=== PATIENT | male | born 1955 | race Caucasian/White ===

== ENCOUNTER 2018-04-28 21:46 | Day surgery (SDC) | payer BC ==
[2018-04-28] MEDS ORDERED: LORazepam 2 MG/ML SDV IVPUSH ONE (22:02)
[2018-04-28] MEDS ORDERED: Sodium Chloride 0.9% 10 ML Syringe FLUSH PRN ×2 (22:02→22:46)
[2018-04-28] MEDS ORDERED: Glucagon,Human Recombinant 1 MG Vial IVPUSH ONE (22:02)
[2018-04-28] MEDS ORDERED: Lactated Ringers 1,000 ML IV SCH (22:15)
--- NOTE | 2018-04-28 22:36 | EDM.PDOC ---
ED HPI GENERAL MEDICAL PROBLEM - General Chief Complaint: ENT Problem Stated Complaint: FOOD STUCK IN THROAT Time Seen by Provider: 04/28/18 21:56 Source of Information: Reports: Patient History Limitations: Reports: No Limitations - History of Present Illness INITIAL COMMENTS - FREE TEXT/NARRATIVE: The patient presents with chicken stuck in his throat. He was eating about 3 hours ago when this started. He cannot drink or eat anything. He says he has had trouble with some foods in the past but he is able to get them moving after a short time. He cannot move this one. He had surgery on a hernia recently. Onset: Sudden Duration: Hour(s): (3) Location: Reports: Neck (throat) Quality: Reports: Sharp Severity: Moderate Improves with: Reports: Other (not eating or drinking) Worsens with: Reports: Other (eating or drinking) Context: Reports: Activity (eating chicken) Associated Symptoms: Reports: No Other Symptoms - Related Data Allergies Allergy/AdvReac Type Severity Reaction Status Date / Time venom-honey bee Allergy Shortness Verified 04/28/18 21:54 [bee venom (honey bee)] of Breath Home Meds: Home Meds Ibuprofen [Motrin] 400 mg PO BID PRN 05/30/14 [History] Past Medical History - Past Surgical History GI Surgical History: Reports: Hernia Repair/Other Social & Family History - Tobacco Use Smoking Status *Q: Former Smoker Used Tobacco, but Quit: Yes Month/Year Tobacco Last Used: 15 years - Caffeine Use Caffeine Use: Reports: Coffee - Recreational Drug Use Recreational Drug Use: No ED ROS ENT - Review of Systems Review Of Systems: See Below Constitutional: Reports: No Symptoms HEENT: Reports: Other (chicken stuck in his throat) Respiratory: Reports: No Symptoms Cardiovascular: Reports: No Symptoms Endocrine: Reports: No Symptoms GI/Abdominal: Reports: No Symptoms : Reports: No Symptoms Musculoskeletal: Reports: No Symptoms ED EXAM, ENT - Physical Exam Exam: See Below Exam Limited By: No Limitations General Appearance: Alert, No Apparent Distress Ears: Normal External Exam Nose: Normal Inspection Mouth/Throat: Normal Inspection Head: Atraumatic, Normocephalic Neck: Normal Inspection, Supple, Non-Tender Respiratory/Chest: No Respiratory Distress, Lungs Clear, Normal Breath Sounds Cardiovascular: Regular Rate, Rhythm, No Edema, No Murmur GI/Abdominal: Soft, Non-Tender, No Organomegaly, No Mass Extremities: Normal Inspection Course - Vital Signs Last Recorded V/S: Last Vital Signs Temp 98 F 04/28/18 21:52 Pulse 87 04/28/18 21:52 Resp 16 04/28/18 21:52 BP 147/103 H 04/28/18 21:52 Pulse Ox 92 L 04/28/18 21:52 - Orders/Labs/Meds Orders: Active Orders 24 hr Category Date Time Status Peripheral IV Care [RC] . DIRECTED Care 04/28/18 22:02 Active Lactated Ringers [Ringers, Lactated] 1,000 ml Med 04/28/18 22:15 Active IV ASDIRECTED Sodium Chloride 0.9% [Saline Flush] Med 04/28/18 22:02 Active 10 ml FLUSH ASDIRECTED PRN Peripheral IV Insertion Adult [OM.PC] Routine Oth 04/28/18 22:02 Ordered Medication Orders Lactated Ringer's (Ringers, Lactated) 1,000 mls @ 150 mls/hr IV ASDIRECTED ERIC Last Admin: 04/28/18 22:20 Dose: 150 mls/hr Sodium Chloride (Saline Flush) 10 ml FLUSH ASDIRECTED PRN PRN Reason: Keep Vein Open Last Admin: 04/28/18 22:17 Dose: 10 ml Meds: Medications Generic Name Dose Route Start Last Admin Trade Name Freq PRN Reason Stop Dose Admin Lactated Ringer's 1,000 mls @ 150 mls/hr 04/28/18 22:15 04/28/18 22:20 Ringers, Lactated IV 150 mls/hr ASDIRECTED ERIC Administration Sodium Chloride 10 ml 04/28/18 22:02 04/28/18 22:17 Saline Flush FLUSH 10 ml ASDIRECTED PRN Administration Keep Vein Open Discontinued Medications Generic Name Dose Route Start Last Admin Trade Name Freq PRN Reason Stop Dose Admin Glucagon 1 mg 04/28/18 22:02 04/28/18 22:20 Glucagen IVPUSH 04/28/18 22:03 1 mg ONETIME ONE Administration Lorazepam 1 mg 04/28/18 22:02 04/28/18 22:19 Ativan IVPUSH 04/28/18 22:03 1 mg ONETIME ONE Administration - Re-Assessments/Exams Free Text/Narrative Re-Assessment/Exam: 04/28/18 22:40 I ordered an IV LR at 150mL/hr, glucagon 1mg IV, and ativan 1mg IV. That did not help. I called Dr Hunt and he will come see the patient and take him to the OR. Departure - Departure Time of Disposition: 22:45 Disposition: DC/Tfer to [facility] Condition: Good Clinical Impression: Esophageal foreign body Qualifiers: Encounter type: initial encounter Qualified Code(s): T18.108A - Unspecified foreign body in esophagus causing other injury, initial encounter - Discharge Information Referrals: PCP,None [Primary Care Provider] - - My Orders Last 24 Hours: My Active Orders 04/28/18 22:02 Peripheral IV Care [RC] . DIRECTED Sodium Chloride 0.9% [Saline Flush] 10 ml FLUSH ASDIRECTED PRN Peripheral IV Insertion Adult [OM.PC] Routine 04/28/18 22:15 Lactated Ringers [Ringers, Lactated] 1,000 ml IV ASDIRECTED - Assessment/Plan Last 24 Hours: My Active Orders 04/28/18 22:02 Peripheral IV Care [RC] . DIRECTED Sodium Chloride 0.9% [Saline Flush] 10 ml FLUSH ASDIRECTED PRN Peripheral IV Insertion Adult [OM.PC] Routine 04/28/18 22:15 Lactated Ringers [Ringers, Lactated] 1,000 ml IV ASDIRECTED
--- NOTE | 2018-04-28 22:53 | PCM.HP ---
H&P History of Present Illness - General Date of Service: 04/28/18 Admit Problem/Dx: Admission Diagnosis/Problem Admission Diagnosis/Problem Foreign body in esophagus Source of Information: Patient, Family, Provider - History of Present Illness Initial Comments - Free Text/Narative: 63-year-old male who works at [employer] here in town ate chicken about 3-4 hours ago. The piece became lodged in his esophagus causing local discomfort and inability to tolerate his salivary secretions. He tried water without success. He stated that when he drank water it went the wrong way. He presented to the emergency room and all medical efforts were attempted to allow for passage of the meat but were unsuccessful. I was asked to see him for endoscopic disimpaction. - Related Data Allergies/Adverse Reactions: Allergies Allergy/AdvReac Type Severity Reaction Status Date / Time venom-honey bee Allergy Shortness Verified 04/28/18 21:54 [bee venom (honey bee)] of Breath Home Medications: Home Meds Ibuprofen [Motrin] 400 mg PO BID PRN 05/30/14 [History] Past Medical History - Past Surgical History GI Surgical History: Reports: Hernia Repair/Other Social & Family History - Tobacco Use Smoking Status *Q: Former Smoker Used Tobacco, but Quit: Yes Month/Year Tobacco Last Used: 15 years - Caffeine Use Caffeine Use: Reports: Coffee - Recreational Drug Use Recreational Drug Use: No H&P Review of Systems - Review of Systems: Review Of Systems: ROS reveals no pertinent complaints other than HPI. Exam - Exam Exam: See Below - Vital Signs Vital Signs: Last Vital Signs Temp 36.6 C 04/28/18 21:52 Pulse 87 04/28/18 21:52 Resp 16 04/28/18 21:52 BP 147/103 H 04/28/18 21:52 Pulse Ox 92 L 04/28/18 21:52 Weight: 83.915 kg - Exam General: Alert, Oriented, Cooperative, Mild Distress HEENT: Conjunctiva Clear, EOMI, Hearing Intact Neck: Supple Lungs: Clear to Auscultation, Normal Respiratory Effort Cardiovascular: Regular Rate, Regular Rhythm, Normal S1, Normal S2 GI/Abdominal Exam: Soft, Non-Tender (Male) Exam: Deferred Rectal (Males) Exam: Deferred Extremities: Normal Inspection, Normal Range of Motion Skin: Warm, Dry, Intact Psychiatric: Alert, Normal Affect - Problem List (1) Esophageal obstruction due to food impaction SNOMED Code(s): 706606372 ICD Code: K22.2 - ESOPHAGEAL OBSTRUCTION; T18.128A - FOOD IN ESOPHAGUS CAUSING OTHER INJURY, INITIAL ENCOUNTER Status: Acute Priority: High Current Visit: Yes Problem List Initiated/Reviewed/Updated: Yes Orders Last 24hrs: Active Orders 24 hr Category Date Time Status Admission Status [Patient Status] [ADT] Routine ADT 04/28/18 22:44 Active Communication Order [RC] ROUTINE Care 04/28/18 22:46 Ordered Patient to Empty Bladder [RC] ASDIRECTED Care 04/28/18 22:46 Ordered Peripheral IV Care [RC] . DIRECTED Care 04/28/18 22:02 Active Peripheral IV Care [RC] . DIRECTED Care 04/28/18 22:48 Ordered Verify Patient Consent Obtain [RC] ASDIRECTED Care 04/28/18 22:47 Ordered Nothing Per Oral Diet [DIET] Diet 04/28/18 Dinner Ordered Lactated Ringers [Ringers, Lactated] 1,000 ml Med 04/28/18 22:15 Active IV ASDIRECTED Sodium Chloride 0.9% @ 125 MLS/HR (1000ml) Med 04/28/18 23:00 Ordered Sodium Chloride 0.9% [Normal Saline] 1,000 ml IV ASDIRECTED Sodium Chloride 0.9% [Saline Flush] Med 04/28/18 22:02 Active 10 ml FLUSH ASDIRECTED PRN Sodium Chloride 0.9% [Saline Flush] Med 04/28/18 22:46 Ordered 10 ml FLUSH ASDIRECTED PRN Peripheral IV Insertion Adult [OM.PC] Routine Oth 04/28/18 22:02 Ordered Peripheral IV Insertion Adult [OM.PC] Routine Oth 04/28/18 22:46 Ordered Schedule Procedure [COMM] Routine Oth 04/28/18 22:46 Ordered Resuscitation Status Routine Resus Stat 04/28/18 22:46 Ordered Medication Orders Lactated Ringer's (Ringers, Lactated) 1,000 mls @ 150 mls/hr IV ASDIRECTED ERIC Last Admin: 04/28/18 22:20 Dose: 150 mls/hr Sodium Chloride (Normal Saline) 1,000 mls @ 125 mls/hr IV ASDIRECTED ERIC Sodium Chloride (Saline Flush) 10 ml FLUSH ASDIRECTED PRN PRN Reason: Keep Vein Open Last Admin: 04/28/18 22:17 Dose: 10 ml Sodium Chloride (Saline Flush) 10 ml FLUSH ASDIRECTED PRN PRN Reason: Keep Vein Open Assessment/Plan Comment:: Esophageal meat impaction will need endoscopic disimpaction. EGD with endoscopic meat disimpaction of the esophagus. The benefits and risk of the procedure as well as the alternatives were explained to the patient and his was in attendance. He is a patient of mine who I recently performed a hernia repair on and he wants me to proceed.
[2018-04-28] MEDS ORDERED: Lidocaine 1% 4 ML ONE (22:56)
[2018-04-28] MEDS ORDERED: Ondansetron 4 MG/2 ML SDV ONE (22:56)
[2018-04-28] MEDS ORDERED: Propofol 200 MG/20 ML SDV ONE (22:56)
[2018-04-28] MEDS ORDERED: Succinylcholine/Normal Saline 100 MG/5 ML Syringe ONE (22:56)
[2018-04-28] MEDS ORDERED: Lactated Ringers 1,000 ML ONE (22:56)
[2018-04-28] MEDS ORDERED: Dexamethasone 4 MG/ML SDV ONE (22:56)
[2018-04-28] MEDS ORDERED: Midazolam 1 MG/ML 2 ML SDV ONE (22:57)
[2018-04-28] MEDS ORDERED: fentaNYL 100 MCG/2 ML SDV ONE (22:57)
[2018-04-28] MEDS ORDERED: Sodium Chloride 0.9% 1,000 ML IV SCH (23:00)
--- NOTE | 2018-04-28 23:09 | PCM.PREANE ---
Preanesthetic Assessment - Anesthesia/Transfusion/Family Hx Anesthesia History: Prior Anesthesia Without Reaction Family History of Anesthesia Reaction: No Transfusion History: No Prior Transfusion(s) Intubation History: Unknown - Review of Systems General: No Symptoms Pulmonary: No Symptoms (Former smoker: quit 12 years ago.) Cardiovascular: No Symptoms Gastrointestinal: No Symptoms (GERD), Difficulty Swallowing (chicken stuck in throat) Neurological: Headache (migraines) Other: Reports: None, Throat Pain - Physical Assessment NPO Status Date: 04/28/18 NPO Status Time: 19:00 Pulse: 87 O2 Sat by Pulse Oximetry: 92 Respiratory Rate: 16 Blood Pressure: 147/103 Temperature: 36.6 C Vital Signs: Last Vital Signs Temp 36.6 C 04/28/18 21:52 Pulse 87 04/28/18 21:52 Resp 16 04/28/18 21:52 BP 147/103 H 04/28/18 21:52 Pulse Ox 92 L 04/28/18 21:52 Height: 1.75 m Weight: 83.915 kg ASA Class: 2E Mental Status: Alert & Oriented x3 Airway Class: Mallampati = 2 Dentition: Reports: Broken Tooth/Teeth, Missing Tooth/Teeth Thyro-Mental Finger Breadths: 3 Mouth Opening Finger Breadths: 3 ROM/Head Extension: Full Lungs: Clear to Auscultation, Normal Respiratory Effort Cardiovascular: Regular Rate, Regular Rhythm, No Murmurs - Allergies Allergies/Adverse Reactions: Allergies Allergy/AdvReac Type Severity Reaction Status Date / Time venom-honey bee Allergy Shortness Verified 04/28/18 21:54 [bee venom (honey bee)] of Breath - Anesthesia Plan Pre-Op Medication Ordered: None - Acknowledgements Anesthesia Type Planned: General Anesthesia Pt an Appropriate Candidate for the Planned Anesthesia: Yes Alternatives and Risks of Anesthesia Discussed w Pt/Guardian: Yes Pt/Guardian Understands and Agrees with Anesthesia Plan: Yes PreAnesthesia Questionnaire - Past Surgical History GI Surgical History: Reports: Hernia Repair/Other - SUBSTANCE USE Smoking Status *Q: Former Smoker Recreational Drug Use History: No - HOME MEDS Home Medications: Home Meds Ibuprofen [Motrin] 400 mg PO BID PRN 05/30/14 [History] - CURRENT (IN HOUSE) MEDS Current Meds: Current Medications Sodium Chloride (Normal Saline) 1,000 mls @ 125 mls/hr IV ASDIRECTED ERIC Sodium Chloride (Saline Flush) 10 ml FLUSH ASDIRECTED PRN PRN Reason: Keep Vein Open Last Admin: 04/28/18 22:17 Dose: 10 ml Sodium Chloride (Saline Flush) 10 ml FLUSH ASDIRECTED PRN PRN Reason: Keep Vein Open Last Admin: 04/28/18 22:51 Dose: 10 ml Discontinued Medications Dexamethasone (Dexamethasone) Confirm Administered Dose 8 mg .ROUTE .STK-MED ONE Stop: 04/28/18 22:57 Fentanyl (Sublimaze) Confirm Administered Dose 100 mcg .ROUTE .STK-MED ONE Stop: 04/28/18 22:58 Glucagon (Glucagen) 1 mg IVPUSH ONETIME ONE Stop: 04/28/18 22:03 Last Admin: 04/28/18 22:20 Dose: 1 mg Lactated Ringer's (Ringers, Lactated) 1,000 mls @ 150 mls/hr IV ASDIRECTED [facility] Last Admin: 04/28/18 22:20 Dose: 150 mls/hr Lidocaine HCl (Xylocaine-Mpf 1%) Confirm Administered Dose 4 mls @ as directed .ROUTE .STK-MED ONE Stop: 04/28/18 22:57 Lactated Ringer's (Ringers, Lactated) Confirm Administered Dose 1,000 mls @ as directed .ROUTE .STK-MED ONE Stop: 04/28/18 22:57 Lorazepam (Ativan) 1 mg IVPUSH ONETIME ONE Stop: 04/28/18 22:03 Last Admin: 04/28/18 22:19 Dose: 1 mg Midazolam HCl (Versed 1 Mg/Ml) Confirm Administered Dose 2 mg .ROUTE .STK-MED ONE Stop: 04/28/18 22:58 Ondansetron HCl (Zofran) Confirm Administered Dose 4 mg .ROUTE .STK-MED ONE Stop: 04/28/18 22:57 Propofol (Diprivan 20 Ml) Confirm Administered Dose 200 mg .ROUTE .STK-MED ONE Stop: 04/28/18 22:57 Succinylcholine Chloride (Succinylcholine In Ns Pf) Confirm Administered Dose 100 mg .ROUTE .STK-MED ONE Stop: 04/28/18 22:57
--- NOTE | 2018-04-29 00:05 | PCM.OPNOTE ---
- General Post-Op/Procedure Note Date of Surgery/Procedure: 04/29/18 Operative Procedure(s): Esophagogastroduodenoscopy with esophageal meat disimpaction with forceps biopsy at 25 cm Findings: Impacted chicken at 25-30 cm. There were no mass lesions, scarring stenoses evidence of acute or chronic esophagitis, strictures, webs, or rings. Pre Op Diagnosis: Esophageal meat impaction Post-Op Diagnosis: Same Anesthesia Technique: General ET Tube Primary Surgeon: Jose De Jesus Hunt EBL in mLs: 0 Complications: None Condition: Good Free Text/Narrative:: After adequate general endotracheal tube anesthesia was obtained a lubricated upper endoscope was inserted through a bite-block into the esophagus without difficulty. At about 20 cm there was a collection of saliva above impacted chicken at 25 cm. With gentle manipulation of the tip of the scope I was able to easily pass the meat into the stomach. At the area of the impaction there was some minor mucosal edema but no digestive changes and no other pathology seen in these areas. The GE junction was unremarkable. I passed the scope into the stomach and then through the pylorus into the second part of the duodenum. The second first ports were endoscopically normal. The antrum was endoscopically normal as well. In the retroflexed view I could see the meat that was impacted in the esophagus floating in the stomach. There was no hiatal hernia. The fundus and cardiac regions were grossly normal. I then withdrew the scope to the GE junction which was unremarkable. The body of the esophagus was normal except for the area where the meat was impacted. I then withdrew the scope after removing air. [employer] photographs were taken for the patient and for the medical record.
--- NOTE | 2018-04-29 00:13 | PCM.POSTAN ---
POST ANESTHESIA ASSESSMENT - MENTAL STATUS Mental Status: Alert - VITAL SIGNS Pulse Rate: 69 SaO2: 94 Resp Rate: 17 Blood Pressure: 119/79 Temperature: 37.1 C - RESPIRATORY Respiratory Status: Respiratory Rate WNL, Airway Patent, O2 Saturation Stable, Supplemental Oxygen - CARDIOVASCULAR CV Status: Pulse Rate WNL, Blood Pressure Stable - GASTROINTESTINAL GI Status: No Symptoms - POST OP HYDRATION Hydration Status: Adequate & Stable
--- NOTE | 2018-04-29 00:44 | PCM48HPAN ---
Post Anesthesia Note - EVALUATION WITHIN 48HRS OF ANESTHETIC Vital Signs in Normal Range: Yes Patient Participated in Evaluation: Yes Respiratory Function Stable: Yes Airway Patent: Yes Cardiovascular Function Stable: Yes Hydration Status Stable: Yes Pain Control Satisfactory: Yes Nausea and Vomiting Control Satisfactory: Yes Mental Status Recovered: Yes
== END 2018-04-29 01:15 | disposition home or self-care (01) ==
LOC: JD.ED 21:46 → JD.SDS 22:47
PROVIDERS: ATTEND Surgery
DX: T18.128A Food in esophagus causing other injury, initial encounter (principal); K20.9 Esophagitis, unspecified; D72.1 Eosinophilia; Z91.030 Bee allergy status; Z87.891 Personal history of nicotine dependence; X58.XXXA Exposure to other specified factors, initial encounter
CPT/HCPCS: 43239; 43247; 96361; 96374; 96375; 99285; J0330; J1100; J1610; J2001; J2060; J2405; J3010; J7050; J7120; 99284; J2250; J2704

== ENCOUNTER 2020-09-29 09:24 | Day surgery (SDC) | payer BC, MEDICARE ==
[2020-09-29] MEDS: Polymyxin B/Trimethoprim 10 ML Bottle EYELF SCH ×4 (09:30→10:46)
[2020-09-29] MEDS: Brimonidine 0.2% Ophth Soln 5 ML Bottle EYELF SCH ×3 (09:32→10:46)
[2020-09-29] MEDS: Phenylephrine 2.5% Ophth Soln 2 ML Bot EYELF SCH ×6 (09:34→10:25)
[2020-09-29] MEDS: Tropicamide 1% Ophth Soln 15 ML Bottle EYELF SCH ×4 (09:39→10:05)
--- NOTE | 2020-09-29 09:39 | PCM.PREANE ---
Preanesthetic Assessment - Anesthesia/Transfusion/Family Hx Anesthesia History: Prior Anesthesia Without Reaction Family History of Anesthesia Reaction: No Transfusion History: No Prior Transfusion(s) Intubation History: Unknown - Review of Systems General: No Symptoms Pulmonary: No Symptoms Cardiovascular: No Symptoms Gastrointestinal: No Symptoms Neurological: No Symptoms Other: Reports: None - Physical Assessment NPO Status Date: 09/28/20 NPO Status Time: 22:00 Vital Signs: Last Vital Signs Temp 36.8 C 09/29/20 09:20 Pulse 64 09/29/20 09:20 Resp 16 09/29/20 09:20 BP 155/95 H 09/29/20 09:20 Pulse Ox 95 09/29/20 09:20 Height: 1.78 m Weight: 72.575 kg ASA Class: 1 Mental Status: Alert & Oriented x3 Airway Class: Mallampati = 2 Dentition: Reports: Normal Dentition Thyro-Mental Finger Breadths: 3 Mouth Opening Finger Breadths: 3 ROM/Head Extension: Full Lungs: Clear to Auscultation, Normal Respiratory Effort - Allergies Allergies/Adverse Reactions: Allergies Allergy/AdvReac Type Severity Reaction Status Date / Time venom-honey bee Allergy Shortness Verified 09/28/20 12:33 [bee venom (honey bee)] of Breath - Blood Blood Available: No Product(s) Available: None - Anesthesia Plan Pre-Op Medication Ordered: None - Acknowledgements Anesthesia Type Planned: MAC Pt an Appropriate Candidate for the Planned Anesthesia: Yes Alternatives and Risks of Anesthesia Discussed w Pt/Guardian: Yes Pt/Guardian Understands and Agrees with Anesthesia Plan: Yes PreAnesthesia Questionnaire - Past Surgical History GI Surgical History: Reports: Hernia Repair/Other - HOME MEDS Home Medications: Home Meds . [No Known Home Meds] 09/28/20 [History] - CURRENT (IN HOUSE) MEDS Current Meds: Current Medications Brimonidine Tartrate (Alphagan 0.2% Ophth Soln) 0 ml EYELF ASDIRECTED ERIC Stop: 09/29/20 18:00 Last Admin: 09/29/20 09:32 Dose: 1 drop Documented by: Cefuroxime Sodium (Zinacef) 0 mg EYELF ASDIRECTED ERIC Stop: 09/29/20 18:00 Lidocaine HCl (Xylocaine-Mpf 1%) 0 ml INJECT ASDIRECTED ERIC Stop: 09/29/20 18:00 Phenylephrine HCl (Kashif-Synephrine 2.5% Ophth Soln) 0 ml EYELF ASDIRECTED ERIC Stop: 09/29/20 18:00 Last Admin: 09/29/20 09:34 Dose: 1 drop Documented by: Pilocarpine HCl (Pilocar 4% Ophth Soln) 0 ml EYELF ASDIRECTED ERIC Stop: 09/29/20 18:00 Polymyxin/Trimethoprim Sulfate (Polytrim Ophth Soln) 0 ml EYELF ASDIRECTED ERIC Stop: 09/29/20 18:00 Last Admin: 09/29/20 09:30 Dose: 1 drop Documented by: Tetracaine HCl (Tetracaine 0.5% Steri-Unit Mariajose) 0 ml EYEBOTH ASDIRECTED ERIC Stop: 09/29/20 18:00 Tropicamide (Mydriacyl 1% Ophth Soln) 0 ml EYELF ASDIRECTED ERIC Stop: 09/29/20 18:00
[2020-09-29] MEDS: Cefuroxime 10 MG/ML SYRINGE EYELF SCH ×2 (09:59→10:45)
[2020-09-29] MEDS: Tetracaine HCl/PF 0.5% 4 ML Bottle EYEBOTH SCH ×5 (09:59→10:34)
[2020-09-29] MEDS: Lidocaine 1% PF 2 ML SDV INJECT SCH ×2 (09:59→10:33)
[2020-09-29] MEDS: Pilocarpine 4% Ophth Soln 15 ML Bot EYELF SCH ×2 (10:01→10:46)
--- NOTE | 2020-09-29 10:47 | PCM48HPAN ---
Post Anesthesia Note - EVALUATION WITHIN 48HRS OF ANESTHETIC Vital Signs in Normal Range: Yes Patient Participated in Evaluation: Yes Respiratory Function Stable: Yes Airway Patent: Yes Cardiovascular Function Stable: Yes Hydration Status Stable: Yes Pain Control Satisfactory: Yes Nausea and Vomiting Control Satisfactory: Yes Mental Status Recovered: Yes Vital Signs: Last Vital Signs Temp 36.8 C 09/29/20 09:20 Pulse 64 09/29/20 09:20 Resp 16 09/29/20 09:20 BP 155/95 H 09/29/20 09:20 Pulse Ox 95 09/29/20 09:20
== END 2020-09-29 11:04 | disposition home or self-care (01) ==
LOC: JD.SDS 09:24
PROVIDERS: ATTEND Ophthalmology
DX: H25.813 Combined forms of age-related cataract, bilateral (principal); H18.513 Endothelial corneal dystrophy, bilateral; H16.223 Keratoconjunctivitis sicca, not specified as Sjogren's, bilateral; H02.831 Dermatochalasis of right upper eyelid; H50.52 Exophoria; H16.103 Unspecified superficial keratitis, bilateral; H02.834 Dermatochalasis of left upper eyelid; Z98.890 Other specified postprocedural states
CPT/HCPCS: 66984; C1780; J0697; J2001

== ENCOUNTER 2020-11-10 07:28 | Day surgery (SDC) | payer MEDICARE ==
[~2020-11-10 07:28] MED LIST: Cefuroxime 10 MG/ML SYRINGE EYERT SCH; Lidocaine 1% PF 2 ML SDV INJECT SCH; Pilocarpine 4% Ophth Soln 15 ML Bot EYERT SCH
[2020-11-10] MEDS: Polymyxin B/Trimethoprim 10 ML Bottle EYERT SCH ×3 (07:39→09:52)
[2020-11-10] MEDS: Brimonidine 0.2% Ophth Soln 5 ML Bottle EYERT SCH ×5 (07:44→10:29)
[2020-11-10] MEDS: Phenylephrine 2.5% Ophth Soln 15 ML Bot EYERT SCH ×6 (07:49→09:30)
[2020-11-10] MEDS: Tropicamide 1% Ophth Soln 15 ML Bottle EYERT SCH ×5 (07:54→08:50)
--- NOTE | 2020-11-10 08:00 | PCM.PREANE ---
Preanesthetic Assessment - Anesthesia/Transfusion/Family Hx Anesthesia History: Prior Anesthesia Without Reaction Family History of Anesthesia Reaction: No Transfusion History: No Prior Transfusion(s) Intubation History: Unknown - Review of Systems General: No Symptoms Pulmonary: No Symptoms Cardiovascular: No Symptoms Gastrointestinal: No Symptoms Neurological: No Symptoms Other: Reports: None - Physical Assessment NPO Status Date: 11/09/20 NPO Status Time: 22:00 Height: 1.75 m Weight: 77.111 kg ASA Class: 1 Mental Status: Alert & Oriented x3 Airway Class: Mallampati = 2 Dentition: Reports: Broken Tooth/Teeth, Missing Tooth/Teeth Thyro-Mental Finger Breadths: 3 Mouth Opening Finger Breadths: 3 ROM/Head Extension: Full Lungs: Clear to Auscultation, Normal Respiratory Effort Cardiovascular: Regular Rate, Regular Rhythm - Allergies Allergies/Adverse Reactions: Allergies Allergy/AdvReac Type Severity Reaction Status Date / Time venom-honey bee Allergy Shortness Verified 11/09/20 13:40 [bee venom (honey bee)] of Breath - Acknowledgements Anesthesia Type Planned: MAC Pt an Appropriate Candidate for the Planned Anesthesia: Yes Alternatives and Risks of Anesthesia Discussed w Pt/Guardian: Yes Pt/Guardian Understands and Agrees with Anesthesia Plan: Yes PreAnesthesia Questionnaire HEENT History: Reports: Cataract Cardiovascular History: Reports: None Respiratory History: Reports: None Gastrointestinal History: Reports: None Genitourinary History: Reports: None Musculoskeletal History: Reports: None Neurological History: Reports: None Psychiatric History: Reports: None Endocrine/Metabolic History: Reports: None - Past Surgical History HEENT Surgical History: Reports: Cataract Surgery GI Surgical History: Reports: Hernia Repair/Other - SUBSTANCE USE Tobacco Use Status *Q: Former Tobacco User - HOME MEDS Home Medications: Home Meds . [No Known Home Meds] 09/28/20 [History] - CURRENT (IN HOUSE) MEDS Current Meds: Current Medications Brimonidine Tartrate (Alphagan 0.2% Ophth Soln) 0 ml EYERT ASDIRECTED ERIC Stop: 11/10/20 18:00 Last Admin: 11/10/20 07:44 Dose: 1 drop Documented by: Cefuroxime Sodium (Zinacef) 0 mg EYERT ASDIRECTED ERIC Stop: 11/10/20 18:00 Lidocaine HCl (Xylocaine-Mpf 1%) 0 ml INJECT ASDIRECTED [facility] Stop: 11/10/20 18:00 Phenylephrine HCl (Kashif-Synephrine 2.5% Ophth Soln) 0 ml EYERT ASDIRECTED REPLACED BY [facility] Stop: 11/10/20 18:00 Last Admin: 11/10/20 07:49 Dose: 1 drop Documented by: Pilocarpine HCl (Pilocar 4% Ophth Soln) 0 ml EYERT ASDIRECTED REPLACED BY [facility] Stop: 11/10/20 18:00 Polymyxin/Trimethoprim Sulfate (Polytrim Ophth Soln) 0 ml EYERT ASDIRECTED REPLACED BY [facility] Stop: 11/10/20 18:00 Last Admin: 11/10/20 07:39 Dose: 1 drop Documented by: Tetracaine HCl (Tetracaine 0.5% Steri-Unit Mariajose) 0 ml EYEBOTH ASDIRECTED REPLACED BY [facility] Stop: 11/10/20 18:00 Tropicamide (Mydriacyl 1% Ophth Soln) 0 ml EYERT ASDIRECTED REPLACED BY [facility] Stop: 11/10/20 18:00 Last Admin: 11/10/20 07:54 Dose: 1 drop Documented by:
[2020-11-10] MEDS: Tetracaine HCl/PF 0.5% 4 ML Bottle EYEBOTH SCH ×2 (09:22→09:39)
--- NOTE | 2020-11-10 09:42 | PCM48HPAN ---
Post Anesthesia Note - EVALUATION WITHIN 48HRS OF ANESTHETIC Vital Signs in Normal Range: Yes Patient Participated in Evaluation: Yes Respiratory Function Stable: Yes Airway Patent: Yes Cardiovascular Function Stable: Yes Hydration Status Stable: Yes Pain Control Satisfactory: Yes Nausea and Vomiting Control Satisfactory: Yes Mental Status Recovered: Yes Vital Signs: Last Vital Signs Temp 37.1 C 11/10/20 07:25 Pulse 65 11/10/20 07:25 Resp 16 11/10/20 07:25 BP 131/98 H 11/10/20 07:25 Pulse Ox 95 11/10/20 07:25
== END 2020-11-10 10:05 | disposition home or self-care (01) ==
LOC: JD.SDS 07:28
PROVIDERS: ATTEND Ophthalmology
DX: H25.811 Combined forms of age-related cataract, right eye (principal); H26.492 Other secondary cataract, left eye; H18.513 Endothelial corneal dystrophy, bilateral; H02.831 Dermatochalasis of right upper eyelid; H02.834 Dermatochalasis of left upper eyelid; Z87.891 Personal history of nicotine dependence; Z96.1 Presence of intraocular lens
CPT/HCPCS: 66821; 66984; C1780; J0697; J2001